=== PATIENT | male | born 1945 | race Caucasian/White ===

== ENCOUNTER → 2018-04-06 | Outpatient (CLI) | payer MEDICARE, OTHER | LOC: M.RAD 13:02 | DX: J98.4 Other disorders of lung (principal); R50.9 Fever, unspecified ==

== ENCOUNTER → 2018-07-20 | Outpatient (CLI) | payer MEDICARE, OTHER | LOC: M.RAD 16:30 | DX: M19.072 Primary osteoarthritis, left ankle and foot (principal); M79.89 Other specified soft tissue disorders ==

== ENCOUNTER 2020-05-11 20:38 | Emergency (ER) | payer MEDICARE, OTHER ==
[~2020-05-11] VITALS: Ht 182.9 cm; Wt 70.8 kg
[2020-05-11 22:23] LABS: HEMATOCRIT 34.1 % (42.0-52.0); HEMOGLOBIN 11.9 gm/dL (14.0-18.0); MCH 32.9 pg (26.0-34.0); MCHC 34.9 g/dL (28.0-37.0); MCV 94.1 fL (80.0-100.0); MPV 8.4 fl. (7.2-11.1); RBC 3.62 mil/uL (4.50-6.00); RDW-CV 13.5 % (10.5-14.5); WBC 7.7 thou/uL (4.0-11.0)
[2020-05-11 22:24] LABS: CALCIUM 8.2 mg/dL (8.5-10.1); CREATININE 1.1 mg/dL (0.6-1.3); POTASSIUM 3.6 mmol/L (3.5-5.1)
[2020-05-11 22:45] LABS: URINE BILIRUBIN NEGATIVE (Negative); URINE BLOOD NEGATIVE (Negative); URINE CLARITY CLEAR; URINE COLOR YELLOW; URINE GLUCOSE-RANDOM 2+ (Negative); URINE KETONES 1+ (Negative); URINE LEUKOCYTES-REFLEX NEGATIVE (Negative); URINE NITRITE-REFLEX NEGATIVE (Negative); URINE PROTEIN NEGATIVE (Negative); URINE SPECIFIC GRAVITY 1.025 (1.005-1.030); URINE UROBILINOGEN 0.2 E.U./dl (0.2-1.0)
[2020-05-11 22:57] VITALS: BP 127/62
== END 2020-05-11 22:58 | disposition home or self-care (01) ==
LOC: M.ERS 20:38
PROVIDERS: Personal Emergency Response Attendant
DX: R33.9 Retention of urine, unspecified (principal); Z79.899 Other long term (current) drug therapy; Z98.890 Other specified postprocedural states; Z90.49 Acquired absence of other specified parts of digestive tract

== ENCOUNTER → 2020-05-11 | Day surgery (SDC) | payer MEDICARE, OTHER ==
[~2020-05-11] MED LIST: ANDROGEL5 GM TOP; NORCO 5-325 TA1 EAC1 PO; OMEPRAZOLE 20 M20 M1 PO; PRESERVISION A1 EAC2 PO; VITAMIN D3125 MC1 PO
--- NOTE | ~2020-05-11 | OP ---
[facility] [address] [place] [address] OPERATIVE REPORT Name: CAMLATA Theresa CORDERO Room: [facility]#: [id number] Admission: 05/11/20 Attend Phys: Naveed Lock Discharge: Date of : 49 Report #: [id number] THIS REPORT FOR: //name// cc: Héctor Mendez MD, David L. MD ~ THIS REPORT FOR: //name// CC: Héctor Lock DATE OF SERVICE: 05/11/2020 PREOPERATIVE DIAGNOSIS: Symptomatic cholelithiasis. POSTOPERATIVE DIAGNOSIS: Symptomatic cholelithiasis. OPERATION: Laparoscopic cholecystectomy. SURGEON: Naveed Lock MD ANESTHESIA: General. ESTIMATED BLOOD LOSS: Minimal. SPECIMEN: Gallbladder. DESCRIPTION OF PROCEDURE: After informed consent was obtained, the patient was brought to the operating room and placed supine. SCDs were placed and working, preoperative antibiotics were administered, general anesthesia was induced. The abdomen was prepped and draped in the usual sterile fashion. A 10 mm incision was made below the umbilicus. Fascia was incised and a trocar was placed. Pneumoperitoneum was established. Three right upper quadrant 5 mm ports were placed. Gallbladder was grasped at the fundus and retracted cephalad. Infundibulum was grasped and retracted laterally. I dissected out the cystic duct and cystic artery. Cystic plate was fully identified. The cystic duct and artery were clipped and ligated leaving 2 clips on the remaining duct and one on the remaining artery. Gallbladder was then taken off the liver bed with electrocautery. It was placed into an Endopouch and removed. The fascia was then closed with a [id number] 0 Vicryl. Skin was closed with 4-0 Monocryl. Incisions were sealed with Dermabond. COMPLICATIONS: [place] [address] OPERATIVE REPORT Name: LATA LEVY JR Room: [facility]#: [id number] Admission: 05/11/20 Attend Phys: Naveed Lock Discharge: Date of : 49 Report #: [id number] DISPOSITION: The patient was taken to recovery in satisfactory condition. By: [id number] Lock MD /nt
[2020-05-11 09:05] LABS: HEMATOCRIT 35.8 % (42.0-52.0); HEMOGLOBIN 12.2 gm/dL (14.0-18.0); MCHC 33.9 g/dL (28.0-37.0); MCV 94.4 fL (80.0-100.0); MPV 7.4 fl. (7.2-11.1); RBC 3.8 mil/uL (4.50-6.00); RDW-CV 13.4 % (10.5-14.5)
[2020-05-11 09:11] LABS: CALCIUM 8.8 mg/dL (8.5-10.1); POTASSIUM 3.8 mmol/L (3.5-5.1)
[2020-05-11 10:21] LABS: ALBUMIN 3.8 g/dL (3.4-5.0); TOTAL BILIRUBIN 0.4 mg/dL (<0.1-1.0); TOTAL PROTEIN 7.2 g/dL (6.4-8.2)
--- NOTE | 2020-05-11 15:41 | EKG ---
[place] [address] ELECTROCARDIOGRAM REPORT Name: LATA LEVY JR Room: [facility]#: [id number] Admission: 05/11/20 Attend Phys: Naveed Rosado Discharge: Date of : 49 Date of Service: 05/11/20904 Report #: [id number] THIS REPORT FOR: //name// [facility] Test Date: 2020-05-11 Test Time: 09:05:38 Pat Name: LATA LEVY Department: Room: Gender: Adz Worker: [facility] : 1945 Requested By: Naveed Lock Order Number: [id number] Donny MD: Wilder Stephens Measurements Intervals [place] Rate: 59 P: 66 PA: 165 QRS: 57 QRSD: 104 T: 63 QT: 421 QTc: 417 Interpretive Statements Sinus rhythm No previous ECG available for comparison Electronically Signed On 05-11-2020 15:41:01 CDT by Wilder Stephens [email or web address] <ELECTRONICALLY SIGNED> By: Wilder Stephens MD, [facility] 05/11/20 1541 4 4 Wilder Stephens MD, FACC /EPI
--- NOTE | 2020-05-13 13:08 | PATH ---
[address] [address] PATHOLOGY RPT PROCEDURE Name: LATA LEVY JR Room: [facility]#: [id number] Admission: 05/11/20 Date of : 49 Discharge: Report #: [id number] Path Case #: [id number] [facility] Accession Number: [id number] . 01 Material submitted: . gallbladder - GALLBLADDER . 01 Clinical history: . Calculous gallbladder . 02 Diagnosis: "Gallbladder", cholecystectomy: - Chronic cholecystitis. - Cholelithiasis. (CLW:tania; 05/13/2020) S 05/13/2020 1115 Local . 02 Electronically signed: . Opal Barrera MD, Pathologist NPI- [id number] . 01 Gross description: . The specimen is received in formalin, labeled "Lata Levy gallbladder" and consists of an intact purple harper gallbladder measuring 9.8 x 2.7 x 2.4 cm. The margin is inked. Opening reveals thick green bile and a yellow granular calculi measuring 2.5 x 1.8 x 1.5 cm. The mucosa is green and granular with a wall thickness of 0.1 cm. No gross lesions or lymph nodes are identified. Licensed Staff Mft sections are submitted in A1. ([facility]; 05/11/2020) JFQ/JFQ 05/11/2020 2139 Local . 02 Pathologist provided ICD-10: K80.10 . 02 CPT . 558610 Specimen Comment: A courtesy copy of this report has been sent to [phone] Specimen Comment: [phone] Specimen Comment: Report sent to / DR MEJIA Performed at: [address] [id number] MD Bernardo Carlson MD Phone: [phone] Performed at: [address] [id number] [address] [address] PATHOLOGY RPT PROCEDURE Name: LATA LEVY JR [id number] Admission: 05/11/20 Date of : 49 Discharge: Report #: [id number] Path Case #: [id number] MD Ankit Sampson MD Phone: [phone]
== END | disposition home or self-care (01) ==
LOC: M.SUR 08:37
PROVIDERS: ATTEND Surgery
DX: K80.10 Calculus of gallbladder with chronic cholecystitis without obstruction (principal); Z98.890 Other specified postprocedural states; Z90.49 Acquired absence of other specified parts of digestive tract; Z79.899 Other long term (current) drug therapy; Z11.59 Encounter for screening for other viral diseases; Z79.891 Long term (current) use of opiate analgesic

== ENCOUNTER → 2021-12-13 | Outpatient (CLI) | payer MEDICARE, OTHER ==
[2021-12-13 17:46] LABS: ABSOLUTE EOSINOPHILS 0.1 thou/uL (0.0-0.7); ABSOLUTE LYMPHOCYTES 1.5 thou/uL (0.8-5.3); ABSOLUTE MONOCYTES 0.4 thou/uL (0.0-1.2); ABSOLUTE NEUTROPHILS 3.3 thou/uL (1.6-8.1); BASOPHILS 0.8 %; EOSINOPHILS 2.2 %; HEMATOCRIT 37.6 % (42.0-52.0); HEMOGLOBIN 12.5 gm/dL (14.0-18.0); LYMPHOCYTES 28.6 %; MCH 31.2 pg (26.0-34.0); MCHC 33.3 g/dL (28.0-37.0); MCV 93.8 fL (80.0-100.0); MONOCYTES 7.2 %; MPV 7.7 fl. (7.2-11.1); NUCLEATED RBCS 0 /100WBC; PLATELET COUNT* 220 thou/uL (150-400); POLYS 61.2 %; RBC 4.01 mil/uL (4.50-6.00); RDW-CV 13.5 % (10.5-14.5); WBC 5.4 thou/uL (4.0-11.0)
[2021-12-13 19:05] LABS: % SATURATION 19 % (20-39); IRON 76 ug/dL (50-175)
== END ==
LOC: M.LAB 17:19
DX: D64.9 Anemia, unspecified (principal); K21.9 Gastro-esophageal reflux disease without esophagitis; K62.5 Hemorrhage of anus and rectum; Z86.010 Personal history of colon polyps